=== PATIENT | male | born 1980 | race Caucasian/White ===

== ENCOUNTER 2019-01-27 16:37 | Emergency (ER) | payer OTHER ==
[~2019-01-27] VITALS: Ht 167.6 cm; Wt 79.4 kg
[2019-01-27] MEDS ORDERED: SODIUM CHLORIDE 0.9% 1,000 ML IV ONE (16:49)
[2019-01-27] MEDS ORDERED: LORazepam 2MG/ML-1ML VIAL IV ONE (17:00)
[2019-01-27 17:19] LABS: Basophils # (auto) 0.1 uL; Eosinophils # (auto) 0.1 uL; Eosinophils % (auto) 1.3 % (0.0-7.0); Hematocrit 45.9 % (41.0-53.0); Hemoglobin 15.1 g/dL (13.5-17.5); Lymphocytes # (auto) 1.3 uL; Lymphocytes % (auto) 15.8 % (10.0-50.0); Mean Corpuscular Hemoglobin 30.9 pg (28.0-32.0); Mean Corpuscular Volume 93.6 fL (80.0-100.0); Monocytes # (auto) 0.6 uL; Monocytes % (auto) 7.7 % (0.0-12.0); Neutrophils # (auto) 6.2 uL; Neutrophils % (auto) 74.2 % (37.0-80.0); Nucleated Red Blood Cells % 0.1 %; Platelet Count (auto) 391 10^3/uL (140-450); Red Blood Cells 4.91 10^6/uL (4.5-5.90); Red Cell Distribution Width 13.8 % (11.8-14.3); White Blood Cell 8.3 10^3/uL (4.4-10.8)
[2019-01-27 17:34] LABS: Alanine Aminotransferase 47 U/L (16-61); Albumin 3.1 g/dL (3.4-5.0); Amylase 66 U/L (25-115); Anion Gap 9 (5-15); Aspartate Aminotransferase 38 U/L (15-37); BUN/Creatinine Ratio 12.7; Blood Urea Nitrogen 14 mg/dL (7-18); Calcium 8.1 mg/dL (8.5-10.1); Carbon Dioxide 27 mmol/L (21-32); Chloride 104 mmol/L (98-107); GFR African American 95 mL/min; GFR Non-African American 79 mL/min; Glucose 115 mg/dL (74-106); Lipase 394 U/L (73-393); Sodium 140 mmol/L (136-145)
[2019-01-27 17:38] LABS: INR 1.03 (0.9-1.15)
[2019-01-27 17:42] LABS: Alkaline Phosphatase 64 U/L (45-117); Bilirubin, Total 0.3 mg/dL (0.2-1.0); Total Protein 6.4 g/dL (6.4-8.2)
[2019-01-27 20:48] LABS: Urine Bacteria NONE SEEN /hpf (None Seen); Urine Blood TRACE /uL (Negative); Urine Specific Gravity 1.017 (1.001-1.035); Urine WBC 1 /hpf (0 - 3)
[2019-01-27 20:53] LABS: Alcohol, Urine < 3.0 mg/dL (0-5); Amphetamine Screen, Urine NEGATIVE (NEGATIVE); Barbiturate Scree,Urine NEGATIVE (NEGATIVE); Benzodiazephine Screen, Urine NEGATIVE (NEGATIVE); Cannabinoid Screen, Urine POSITIVE (NEGATIVE); Cocaine Screen, Urine NEGATIVE (NEGATIVE); Opiate Scree,Urine NEGATIVE (NEGATIVE); Phencyclidine Screen, Urine NEGATIVE (NEGATIVE)
[2019-01-28] MEDS ORDERED: OCTREOTIDE ACETATE 500 MCG in SODIUM CHL 0.9% 99 ML IV SCH (00:45)
[2019-01-28] MEDS: OCTREOTIDE ACETATE 100 MCG in SODIUM CHL 0.9% 50 ML IV ONE ×2 (00:58→01:24)
[2019-01-28] MEDS ORDERED: OCTREOTIDE ACETATE 100 MCG/ML VL ONE ×2 (01:11→01:25)
[2019-01-28 02:23] LABS: Hematocrit 38.4 % (41.0-53.0); Hemoglobin 13.1 g/dL (13.5-17.5)
[2019-01-28 02:40] VITALS: BP 108/66
== END 2019-01-28 03:06 | disposition short-term general hospital (02) ==
LOC: ER 16:52
DX: K92.2 Gastrointestinal hemorrhage, unspecified (principal); R56.9 Unspecified convulsions
CPT/HCPCS: 36415; 36600; 70450; 71045; 74176; 80053; 80307; 80320; 81001; 82150; 82805; 83605; 83690; 83735; 83880; 84484; 85014; 85018; 85025; 85610; 85730; 87493; 94761; 96361; 96365; 96366; 96375; 99285; J2060